=== PATIENT | male | born 1955 | race Caucasian/White ===

== ENCOUNTER → 2017-06-16 | Outpatient (CLI) | payer BC ==
--- NOTE | 2017-06-16 20:43 | RT STRESS TEST REPORT ---
[place] [facility] [place] NAME: JAY BERUMEN : [id number] MR: [id number]: [id number] EXAM DATE: ORDERING PHYSICIAN: BUZZ HASKINS TECHNOLOGIST: [employer] Time: 2017-06-16 13:54:47 Total Exercise Time: 00:08:42 Test Indications: preordial pain Medications: occuvite Protocol: BRUCE2 Max HR: 160 BPM 100% of Pred: 160 BPM Max BP: 200/090 mmHG Max Work Load: 10.1 METS Confirmed by SO MONTANEZ ([id number]) on 06/16/2017 8:43:28 PM Referred By: Buzz Haskins Overread By: SO MONTANEZ
== END ==
LOC: RESP 13:50
PROVIDERS: ATTEND Internal Medicine Cardiovascular Disease
DX: R07.2 Precordial pain (principal)
CPT/HCPCS: 93017

== ENCOUNTER → 2017-06-26 | Outpatient (CLI) | payer BC | LOC: LAB 09:55 | PROVIDERS: ATTEND Internal Medicine Cardiovascular Disease | DX: E78.00 Pure hypercholesterolemia, unspecified (principal) | CPT/HCPCS: 36415; 82465; 83718; 84443; 84478 ==